=== PATIENT | male | born 1995 | race Caucasian/White ===

== ENCOUNTER 2017-05-20 08:43 | Emergency (ER) | payer OTHER ==
[~2017-05-20] VITALS: Ht 188 cm; Wt 90.0 kg
[2017-05-20 08:45] VITALS: BP 146/67; PULSE 71; RESP 17; TEMP 97.5; O2SAT 99
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
[2017-05-20] MEDS ORDERED: TRAM50TA PO (09:55)
[2017-05-20] MEDS ORDERED: IBUP1TAB7 PO (09:55)
== END 2017-05-20 10:28 | disposition home or self-care (01) ==
LOC: NEPD 08:43
DX: S62.322A Displaced fracture of shaft of third metacarpal bone, right hand, initial encounter for closed fracture (principal); Y04.8XXA Assault by other bodily force, initial encounter
CPT/HCPCS: 29125; 73130